=== PATIENT | male | born 1975 | race African-American/Black ===

== ENCOUNTER 2024-06-22 00:45 | Day surgery (SDC) | payer BC, SELFPAY ==
[2024-06-14 09:00] VITALS: BMI 21.0
--- OUTSIDE RECORDS SUMMARY | 2024-06-22 00:47 | XMS_ITS | Referral Summary ---
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 06/04/2019 Social History Tobacco Use Types Packs/Day Years Used Date Smoking Tobacco: Every Day Smokeless Tobacco: Never Tobacco Cessation:Ready to Q uit: Not Asked; Counseling Given: Not Answered Comments:1 PPD Alcohol Use Standard Drinks/Week Comments Yes 0 (1 standard drink = 0.6 oz pur e alcohol) socially Sex and Gender Information Value Date Recorded Sex Assigned at Not on file Legal Sex Male 5:49 PM [employer] Gender Identity Not on file Sexual Orientation Not on file 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 Not on file Not on file Not on file Last Filed Vital Signs Vital Sign Reading Time Taken Comments Blood Pressure 152/97 01/07/2022 8:00 PM CDT Pulse 55 01/07/2022 8:00 PM CDT Temperature 36.9 C (98.5 F) 01/07/2022 12:14 PM CDT Respiratory Rate 18 01/07/2022 8:00 PM CDT Oxygen Saturation 99% 01/07/2022 8:00 PM CDT Inhaled Oxygen Concentration - - Weight 66.7 kg (147 lb 0.8 oz) 01/07/2022 12:14 PM CDT Height 182.9 cm (6') 01/07/2022 12:14 PM CDT Body Mass Index 19.94 01/07/2022 12:14 PM CDT Plan of Treatment Not on file Insurance [facility] [employer] [facility] [employer] Care Teams Research Dietitian Relationship Specialty Start Date End Date Magnolia Mendez MD [address] [facility] [address] [facility] [address] [place] [address] PCP - General Family Medicine 05/19/19
--- OUTSIDE RECORDS SUMMARY | 2024-06-22 00:47 | XMS_ITS | Clinical Summary ---
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 06/04/2019 Surgical History Surgery Date Site/Laterality Comments HEMORROIDECTOMY Medical History Medical History Date Comments Addiction to drug (HCC) Anxiety Bleeding disorder Depression GERD (gastroesophageal reflux disease) Inflammatory bowel disease Peptic ulceration Sleep apnea Bipolar disorder (HCC) Family History Medical History Relation Name Comments Alcohol abuse Brother Alcohol abuse Father Hypertension Father Lung disease Father Mental illness Father Hypertension Mother Alcohol abuse Sister Relation Name Status Comments Brother Father Alive Mother Alive Sister Social History Tobacco Use Types Packs/Day Years [...] on file 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 Gender Identity Not on file Sexual Orientation Not on file 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 on file Not on file Not on file Obstetrics History Last Filed Vital Signs Vital Sign Reading [...] 01/07/2022 12:14 PM CDT Plan of Treatment Health Maintenance Due Date Last Done Comments Colon Cancer Screening-Colonoscopy 1976 Depression Screening 1976 Hepatitis C Screening 1976 Prostate Cancer Screening-PSA 1976 DTaP/Tdap/Td Vaccine (1 - Tdap) 11/04/1987 Hepatitis B Screening 1994 Regular Well Visit/Exam 18-64 1994 Pneumococcal vaccine <65 (1 of 2 - PCV) 11/04/1995 Influenza Vaccine (#1) 2023 Insurance [facility] FED[employer]AL [facility] [employer] Care Teams Desk Sergeant Relationship Specialty Start Date End Date Magnolia Mendez MD [address] [facility] [address] [place] [address] PCP - General Family Medicine 05/19/19
[2024-06-22 11:28] VITALS: BP 122/75; PULSE 56; RESP 16; TEMP 36.3; O2SAT 100
[2024-06-22] MEDS: LACTATED RINGERS 1,000 ML 150 ML IV CONT (11:37)
--- NOTE | 2024-06-22 11:46 | PM.HPGS ---
History of Present Illness History of Present Illness Consent: Risks, benefits, and alternatives have been discussed and questions answered. Patient agrees to proceed with procedure. Chief complaint: hemorrhage of anus,rectum Narrative: Kiran Chirinos is a 48 year old male here for colonoscopy, last one 2017, also Hx of internal hemorrhoids, s/p hemorrhoidectomy 2018. He had intermittent blood in stool. Review of Systems Review of Systems: All systems reviewed & are unremarkable except as noted in HPI and below PMFSH Past Medical History Medical History (Updated 06/22/24 @ 11:46 by London Rodríguez MD) Rectal bleeding MDD (major depressive disorder), recurrent episode, moderate Cervical spondylosis with radiculopathy Impingement syndrome of right shoulder Family History Family History Other Hypertension Social History Social History (Updated 11/06/23 @ 14:08 by Mara Dyson) Social History: Single Smoking packs per day: 0.5 Smoking cigarettes per day: 10.0 Years smoked: 25 Smoking pack-years: 12.50 Smoking status: Current every day smoker Tobacco type: cigarettes Second hand tobacco smoke exposure: Yes Alcohol intake: current Alcohol use details: Occasionally Substance use: current Substance use type: marijuana Do You Feel Safe in your Home?: Yes Lack of Transportation: No Lack of Food: Never True Current Housing: I Have Housing Concerned About Future Housing: No Difficulty Paying Gas/Electric Bills: No Difficulty Paying for Meds: No Currently Unemployed: No Education: Don't Know Difficulty w/ Childcare or Family Care: No Living arrangements: with family Occupation/Education: occupation 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 Gender identity (if verbalized by the patient): Male Sexual Orientation (if Verbalized by the Patient): Straight or Heterosexual Meds Home Medications and Allergies Allergies Allergy/AdvReac Type Severity Reaction Status Date / Time No Known Allergies Allergy Verified 06/22/24 11:25 Vital Signs Vital Signs - 24 hr 06/22/24 11:28 Temperature 97.4 F L Pulse Rate 56 L Respiratory Rate 16 Blood Pressure 122/75 Pulse Oximetry 100 Oxygen Delivery Room Air Exam Const: General: comfortable and no acute distress HENMT: Face/Nose/Sinus: Normal nares present Eyes: General: appearance normal, both eyes and all related structures Neck: Neck: no JVD Resp: Auscultation: clear to auscultation bilaterally Cardio: Rate: regular rate Rhythm: regular rhythm GI: Inspection: non-distended GI Palp: Yes Soft to palpation Skin: General skin exam: normal color Neuro: Speech: normal speech Extrem: General: normal to inspection Psych: Mental Status: mental status grossly normal Assessment and Plan Assessment and plan (1) Rectal bleeding: Code(s): K62.5 - Hemorrhage of anus and rectum Status: Acute Assessment and Plan: colonoscopy
--- NOTE | 2024-06-22 12:09 | P.PNAN_ITS ---
Anes - Initial Pre Proc Eval Procedure: Operation Date: 06/22/24 12:30 Proposed Procedures p Colonoscopy - London Rodríguez MD Date/Time: 06/22/24 12:09 Surgeon: London Rodríguez MD Pre Op Diagnosis: hemorrhage of anus,rectum Patient Data Age: 48 Gender: M Height: 1.83 m Weight: 69.7 kg Last Vital Signs Temp 36.3 C L 06/22/24 11:28 Pulse 56 L 06/22/24 11:28 Resp 16 06/22/24 11:28 BP 122/75 06/22/24 11:28 Pulse Ox 100 06/22/24 11:28 O2 Del Method Room Air 06/22/24 11:28 Allergies Allergy/AdvReac Type Severity Reaction Status Date / Time No Known Allergies Allergy Verified 06/22/24 11:25 Patient hx anesthesia problems: none Family hx anesthesia problems: none Results Review: All pre-operative results and documents have been reviewed as part of the pre- operative evaluation. [facility] Past Medical History Medical History (Updated 06/22/24 @ 11:46 by London Rodríguez MD) Rectal bleeding MDD (major depressive disorder), recurrent episode, moderate Cervical spondylosis with radiculopathy Impingement syndrome of right shoulder Family History Family History Other Hypertension Social History Social History Social History: Single Smoking packs per day: 0.5 Smoking cigarettes per day: 10.0 Years smoked: 25 Smoking pack-years: 12.50 Smoking status: Current every day smoker Tobacco type: cigarettes Second hand tobacco smoke exposure: Yes Alcohol intake: current Alcohol use details: Occasionally Substance use: current Substance use type: marijuana Do You Feel Safe in your Home?: Yes Lack of Transportation: No Lack of Food: Never True Current Housing: I Have Housing Concerned About Future Housing: No Difficulty Paying Gas/Electric Bills: No Difficulty Paying for Meds: No Currently Unemployed: No Education: Don't Know Difficulty w/ Childcare or Family Care: No Living arrangements: with family Occupation/Education: occupation 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 Gender identity (if verbalized by the patient): Male Sexual Orientation (if Verbalized by the Patient): Straight or Heterosexual Anes - Eval Final PreProcedure Day of Procedure 06/22/24 12:09 Patient weight: normal Heart: regular rate and rhythm Lungs: clear to auscultation Airway: Mallampati scale class II Neurological: alert and oriented Last oral intake: >/= 8 hours ASA classification: III Emergent: no Anesthetic plan: proceed Anesthesia type and monitoring: general GIVS and standard monitoring Results Review: All pre-operative results and documents have been reviewed as part of the pre- operative evaluation. Informed Consent: The patient's anesthetic plan and its attendant risks and benefits were discussed with the patient/family/POA. Questions were solicited and answers provided to the satisfaction of the patient/family/POA.
[2024-06-22 12:39] VITALS: BP 106/76; PULSE 82; RESP 16; O2SAT 100
[2024-06-22 12:49] VITALS: BP 128/74; PULSE 47; RESP 18; O2SAT 100
[2024-06-22 12:59] VITALS: BP 125/75; PULSE 46; RESP 20; O2SAT 100
[2024-06-22 13:09] VITALS: BP 146/85; PULSE 46; RESP 21; O2SAT 100
== END 2024-06-22 13:20 | disposition home or self-care (01) ==
PROVIDERS: PCP Family Medicine; Referring Provider Student in an Organized Health Care Education/Training Program; Visit Provider Internal Medicine Gastroenterology
PROC: 0DJD8ZZ Inspection of Lower Intestinal Tract, Via Natural or Artificial Opening Endoscopic (ICD-10-PCS; CPT 45378; principal; 2024-06-22 12:30)
DX: K92.1 Melena (principal); K63.5 Polyp of colon; K64.8 Other hemorrhoids; F17.210 Nicotine dependence, cigarettes, uncomplicated; F12.90 Cannabis use, unspecified, uncomplicated
CPT/HCPCS: 45385; 88305; J2704; J7120